=== PATIENT | male | born 1935 | race Caucasian/White ===

== ENCOUNTER 2017-05-04 06:06 | Observation (INO) | payer MEDICARE ==
[~2017-05-04] VITALS: Ht 180.3 cm; Wt 80.3 kg
[~2017-05-04 06:06] MED LIST: ALLO300T2 PO; ASPI81TA11 PO; HYDR25TA5 PO; LISI-515 PO; LOVA40TA PO; METF500T PO; TAMS0.4C4 PO
[2017-05-04] MEDS ORDERED: CHLORHEXIDINE GLUCONATE 2 % 1 PACK (2 CLOTHS) TOPICAL PRN (06:30)
[2017-05-04] MEDS ORDERED: SODIUM CHLOR 0.9% 1000 ML INJ 1,000 ML IV SCH (06:30)
[2017-05-04] MEDS ORDERED: INSULIN HUMAN REGULAR 1,000 UNITS/10 ML VIAL SQ PRN (06:30)
[2017-05-04] MEDS ORDERED: METOPROLOL TARTRATE 25 MG TAB PO PRN (06:30)
[2017-05-04] MEDS ORDERED: SODIUM CHLORID 0.9% 500 ML IV PRN (06:30)
[2017-05-04] MEDS ORDERED: POVIDONE IODINE 5% (ANTISEPSIS KIT) 4 APPLICATIONS EACH NARE PRN (06:30)
[2017-05-04] MEDS ORDERED: VANCOMYCIN 1,000 MG/NS 250ML (for <70 kg) IV SCH ×2 (06:30)
[2017-05-04] MEDS ORDERED: LACTATED RINGER'S 1000 ML IV PRN (06:30)
[2017-05-04 07:14] VITALS: BP 172/75; PULSE 70; RESP 16; TEMP 97.8; O2SAT 98
[2017-05-04] MEDS ORDERED: GENTAMICIN SULFATE 80 MG/2 ML VIAL ONE (07:26)
[2017-05-04] MEDS ORDERED: GELFOAM SIZE 100 ONE (07:26)
[2017-05-04] MEDS ORDERED: ceFAZolin 2 GM PREMIX 50 ML ONE (07:26)
[2017-05-04] MEDS ORDERED: methylPREDNISolone ACETATE 40 MG/ML VIAL ONE (07:26)
[2017-05-04] MEDS ORDERED: THROMBIN (TOPICAL) 5,000 UNIT VIAL ONE (07:26)
[2017-05-04] MEDS ORDERED: ACETAMINOPHEN 1000 MG/100 ML VIAL IV ONE (07:54)
[2017-05-04] MEDS ORDERED: ARTIFICIAL TEARS OPTH OINT 3.5 APPLIC/3.5 GM TUBO ONE (07:54)
[2017-05-04] MEDS ORDERED: MIDAZOLAM HCL 2 MG/2 ML VIAL ONE (07:54)
[2017-05-04] MEDS ORDERED: fentaNYL CITRATE 250 MCG/5 ML AMP ONE (07:55)
[2017-05-04] MEDS ORDERED: FAMOTIDINE 20 MG/2 ML VIAL ONE ×2 (07:56→07:57)
[2017-05-04] MEDS ORDERED: BUPIVACAINE/EPINEPHRINE 0.5% PF 30 ML VIAL ONE (09:43)
[2017-05-04] MEDS ORDERED: DO NOT ADM ANY ANTICOAGULANT DRUGS PRN (10:15)
[2017-05-04] MEDS ORDERED: MENTHOL LOZENGE BUCCAL PRN (10:45)
[2017-05-04] MEDS ORDERED: RESP: ALBUTEROL 2.5 MG/3 ML NEB (PRN) INH (10:45)
[2017-05-04] MEDS ORDERED: MORPHINE SULFATE 4 MG/ML INJ IV PUSH PRN ×2 (10:45)
[2017-05-04] MEDS: SODIUM CHLORIDE 0.9% FLUSH 5 ML FLUSH IVF SCH ×2 (10:45→20:24)
[2017-05-04] MEDS ORDERED: ACETAMINOPHEN/HYDROcodone 325 MG/10 MG TAB PO PRN ×2 (10:45)
[2017-05-04] MEDS ORDERED: ACETAMINOPHEN 325 MG TAB PO PRN (10:45)
[2017-05-04] MEDS ORDERED: SODIUM CHLORIDE 0.9% FLUSH 5 ML FLUSH IVF PRN (10:45)
[2017-05-04] MEDS ORDERED: cloNIDine HCL 0.1 MG TAB PO/NG PRN (10:45)
[2017-05-04] MEDS ORDERED: HYDR-3583 PO (10:58)
[2017-05-04] MEDS: NS + KCL 20 MEQ INJ 1,000 ML IV SCH ×3 (11:00→16:42)
--- NOTE | 2017-05-04 11:11 | PD.OP ---
Operative Report Date of Surgery: May 04, 2017 Preoperative Diagnosis: Lumbar spinal stenosis Postoperative Diagnosis: Lumbar spinal stenosis Procedure: Right L4-5 laminectomy, mesiofacetectomy, foraminotomy, microsurgical resection of the disk Anesthesia: general Surgeon: Bright Alcantara Reeling Machine Setup Operator(s): Natalie Spears Operation and Findings: INDICATIONS FOR THE SURGICAL PROCEDURE Mr Shen is a 81 year-old male who presented with intractable back pain and emmy evidence of right L5 lower extremity radiculopathy. He has failed maximum nonsurgical management including multiple modalities of conservative treatment as well as pain management interventions by an interventional pain specialist. A surgical decompression was indicated as a last resort. The [id number] details of the procedure, indications, alternatives, risks and potential complications were fully discussed with the patient. The patient fully understood. All the questions were answered. No guarantees were given. The patient voiced requesting the procedure and provided informed consents. The patient was offered the alternative of delaying the procedure and continuing with nonsurgical management. DETAILS OF THE SURGICAL PROCEDURE After the induction of general anesthesia, endotracheal intubation was performed. A Sanchez catheter, bilateral SEPIDEH hose and sequential compression devices were placed and kept throughout the procedure. The patient was positioned prone on a Rodger table over a Torsten frame. All pressure points were carefully padded with eggcrate mattress. The eyes were tapped shut after ointment was applied by the anesthesiologist to prevent corneal abrasion. A Jada hugger was placed over the expossed lower body to maintain control of the core body temperature. The lower lumbar region was prepped and draped in the usual sterile fashion. A spinal needle was placed on the paraspinal muscle and a cross-table lateral x-ray performed with a C-arm. The skin incision was made over the spinous process of L4 and L5 along the midline. Small subcutaneous bleeders were controlled with a bipolar. The subcutaneous tissue and thoracolumbar fascia was opened with the Bovie and the spinous process of L4 and L5 were exposed. Then, using a Cho elevator and a Bovie a subperiosteal dissection was performed over the right spinous process lamina and facet at L4 and L5 on the right side. A microdiscectomy self- retaining retractor was placed and an instrument was placed underneath the lamina of L4, and another cross-table lateral x-ray performed for radiological confirmation of the level. At this point in the procedure the operating microscope was draped in the usual sterile fashion and brought to the field. The rest of the surgical procedure was performed using microsurgical dissection technique with exception of the closure. Once the level was confirmed, a TPS drill brought to the field and a hemilaminectomy was performed at L4-L5 on the right side in standard fashion using the AM-8 drill bit, exposing the ligamentum flavum. The superior free border of the ligamentum flavum was from the dura with a ligament dissector and the ligamentum flavum was carefully removed with a 3 mm thin footplate Kerrison. The ligament Flavum and facets were significantly hypertrophic resulting on mass effect on the dural sac. Then, the medial aspect of the facet was drilled and undermined and the exiting L5 nerve root was identified and followed towards the foramen. A foraminotomy was performed with a 3 mm Kerrison. Then, the TPS drill was used to undermine the base of the spinous process, in order to carry out the decompression across the midline to the contralateral side. The ligamentum flavum across the midline was dissected from the dura with a ligament dissector and carefully removed with a 3 mm thin footplate Kerrison. An appropriate decompression of the dural sac and nerve root was achieved. Epidural veins located laterally to the dural sac were carefully coagulated with a bipolar and incised with microscissors. Gentle medial retraction of the dural sac allowed inspection of the disc space. The patient had a broad-based disc protusion which combined with the hypertrophic facets and ligamentun flavum was producing significant stenosis with mass effect on the dural sac and nerve root. Microdiscectomy was then deemed necessary. The annulus fibrosus was thoroughly coagulated with the bipolar and incised with a #10 blade. Then, a microdiscectomy was carried out in the standard fashion using straight and up-biting pituitary forceps. A reverse angle curet was used to push the extruded disc fragments into the disc space so they could be removed with pituitary forceps. Special attention was placed on the middle nerve root and axilla of the nerve root where disc fragments were found, which were carefully dissected and pushed into the disc space and removed with the Kerrison. A good decompression was achieved. The disc space was then irrigated with antibiotic solution. The incision was then thoroughly irrigated with antibiotic solution and hemostasis secured with the bipolar. A Valsalva maneuver failed to show any cerebrospinal fluid leak or bleeding. The incision was irrigated and closed in layers. 0 Vicryl with interrupted sutures was used to close the thoracolumbar fascia and superficial fascia. The subcutaneous tissue was closed with 3-0 Vicryl. The skin was closed with 4-0 running subcuticular Vicryl. Dermabond was applied to the skin. At the end of the procedure, the sponge, needle and instrument counts were all correct. Estimated blood loss was less than 60 cc. No blood transfusion was given. No intraoperative complications occurred. The patient received prophylactic antibiotics. The patient was then extubated and transferred to the recovery room in stable condition. Bright Alcantara MD May 04, 2017 11:11
[2017-05-04] MEDS ORDERED: NEOSTIGMINE 3 MG/3 ML SYR IV ONE (12:00)
[2017-05-04] MEDS ORDERED: LACTATED RINGER'S 1000 ML INJ 1,000 ML IV ONE (12:00)
[2017-05-04] MEDS ORDERED: ONDANSETRON HCL 4 MG/2 ML VIAL IV PUSH ONE (12:00)
[2017-05-04] MEDS ORDERED: PROPOFOL 200 MG/20 ML AMP IV ONE (12:00)
[2017-05-04] MEDS ORDERED: PHENYLEPH/NS 1000 MCG/10 ML SYR IV ONE (12:00)
[2017-05-04] MEDS ORDERED: ePHEDrine/NS 25 MG/5 ML SYR IV ONE (12:00)
--- NOTE | 2017-05-04 12:20 | RADRPT ---
EXAM DATE/TIME: 05/04/2017 08:41 [facility] COMPARISON: No previous studies available for comparison. INDICATIONS : Laminectomy, diskectomy herniated disk, level loc. MEDICAL HISTORY : None. SURGICAL HISTORY : None. ENCOUNTER: Initial ACUITY: 1 day PAIN SCORE: 0/10 LOCATION: Lumbar spine FINDINGS: Surgical instruments are noted posteriorly at L4-5. CONCLUSION: Surgical instruments noted posteriorly at L4-5. Kenneth Villagomez MD on May 04, 2017 at 12:09 Board Certified Radiologist. This report was verified electronically.
--- NOTE | 2017-05-04 12:54 | HHI.DCPOC ---
Discharge Care Plan Diagnosis: (1) S/P lumbar laminectomy Goals to Promote Your Health * To prevent worsening of your condition and complications * To maintain your health at the optimal level Directions to Meet Your Goals Take your medications as prescribed Follow your dietary instruction Follow activity as directed Keep your appointments as scheduled Take your immunizations and boosters as scheduled If your symptoms worsen call your PCP, if no PCP go to Urgent Care Center or Emergency Room Smoking is Dangerous to Your Health. Avoid second hand smoke Call the 24-hour hour crisis hotline for domestic abuse at [facility] May 04, 2017 12:54
--- NOTE | 2017-05-04 12:54 | HHI.DS ---
Discharge Summary Admission Date May 04, 2017 at 10:47 Discharge Date: May 05, 2017 Admitting Diagnosis s/p lumbar laminectomy (1) S/P lumbar laminectomy ICD Code: Z98.890 Brief History Mr. Shen is a 81 year-old male who presented with intractable back pain and emmy evidence of right L5 lower extremity radiculopathy. He has failed maximum nonsurgical management including multiple modalities of conservative treatment as well as pain management interventions by an interventional pain specialist. A surgical decompression was indicated as a last resort. Imaging Last Impressions Lumbar Spine X-Ray 05/04/17 0000 Signed Impressions: Service Date/Time: Thursday, May 04, 2017 08:41 - CONCLUSION: Surgical instruments noted posteriorly at L4-5. Kenneth Villagomez MD Hospital Course Mr. Shen underwent a right L4-5 laminectomy, mesiofacetectomy, foraminotomy, microsurgical resection of the disk on May 04, 2017. His surgery went well without complications. The patient however developed post-surgical urgency. He has been able to void several times since catheter discontinued. He was stable for discharge home. He will follow up with his primary care physician in regards to the bladder issues. He will continue Pyridium and Flomax pending his follow-up medical appointment. Signs and symptoms to watch for fully discussed and all questions answered. He requested discharge home. He does not want a Sanchez catheter. Pt Condition on Discharge: Stable Discharge Disposition: Discharge Home Discharge Instructions DIET: Follow Instructions for: Heart Healthy Diet, Diabetic Diet ACTIVITIES You can perform: Weight Bearing As [place] ADDITIONAL Activity Instructio: Avoid strenuous activities, heavy lifting, overhead activities, repetitive bending, twisting, pushing, pulling or any activities which might result in stress over the spine. Avoid situtation that will put at risk for falls. Use assistive device as needed for walking. Wear lumbar brace when out of bed. New Medications: Hydrocodone-Acetaminophen (Hydrocodone-Acetaminophen) 10-325 mg Tab 1 TAB PO Q8HR PRN PAIN SCALE 1 TO 10 #90 Ref 0 TAB Phenazopyridine HCl (Phenazopyridine HCl) 100 Mg Tab 100 MG PO Q8HR Manage Prostate Problems #30 Ref 0 TAB Continued Medications: Allopurinol (Allopurinol) 300 Mg Tab 150 MG PO DAILY Gout #30 Ref [address] (Aspirin EC) 81 Mg Tabdr 81 MG PO DAILY Ref 0 TAB Hydrochlorothiazide (Hydrochlorothiazide) 25 Mg Tab 12.5 MG PO HS #30 Ref 0 TAB Lisinopril (Lisinopril) 20 Mg Tab 20 MG PO DAILY #30 Ref 0 TAB Lovastatin (Lovastatin) 40 Mg Tab 40 MG PO HS Cholesterol Management #30 Ref 0 TAB Metformin (Metformin) 500 Mg Tab 1000 MG PO AM With meals Blood Sugar Management #60 Ref 0 TAB Metformin (Metformin) 500 Mg Tab 500 MG PO HS With a meal Blood Sugar Management #30 Ref 0 TAB Tamsulosin (Tamsulosin) 0.4 Mg Cap 0.4 MG PO DAILY Manage Prostate Problems #30 Ref 0 CAP [facility] May 04, 2017 12:54
[2017-05-04] MEDS ORDERED: DEXTROSE 50% IN WATER 50 ML VIAL(D50) IV PRN (13:00)
[2017-05-04] MEDS ORDERED: GLUCAGON 1 MG/ML VIAL OTHER PRN (13:00)
[2017-05-04] MEDS ORDERED: PILL SPLITTER OTHER PRN (13:15)
[2017-05-04 13:30] VITALS: BP 133/68; PULSE 76; RESP 18; TEMP 96.5; O2SAT 95
[2017-05-04 16:00] VITALS: BP 154/70; PULSE 70; RESP 18; TEMP 98.4; O2SAT 96
[2017-05-04] MEDS: INSULIN ASPART SUPPLEMENTAL SCALE SQ SCH ×2 (16:00→20:24)
[2017-05-04] MEDS: ceFAZolin 2 GM PREMIX 50 ML IV SCH (16:36)
[2017-05-04 17:32] VITALS: O2SAT 95
[2017-05-04 20:15] VITALS: BP 167/66; PULSE 78; RESP 17; TEMP 96.1; O2SAT 95
[2017-05-04] MEDS: DOCUSATE SODIUM 100 MG CAP PO SCH (20:24)
[2017-05-04] MEDS: PRAVASTATIN SOD 40 MG TAB PO SCH (20:24)
[2017-05-04] MEDS: metFORMIN HCL 500 MG TAB PO SCH (20:24)
[2017-05-04] MEDS: HYDROCHLOROTHIAZIDE 12.5 MG CAP PO SCH (20:24)
[2017-05-04 23:20] VITALS: BP 108/57; PULSE 63; RESP 17; TEMP 97.4; O2SAT 95
[2017-05-05] MEDS: ceFAZolin 2 GM PREMIX 50 ML IV SCH ×2 (01:27→09:23)
[2017-05-05 04:05] VITALS: BP 141/66; PULSE 69; RESP 17; TEMP 97.1; O2SAT 98
[2017-05-05] MEDS: INSULIN ASPART SUPPLEMENTAL SCALE SQ SCH ×4 (06:01→21:00)
[2017-05-05 08:00] VITALS: BP 121/58; PULSE 70; RESP 18; TEMP 95.7; O2SAT 95
[2017-05-05] MEDS: SODIUM CHLORIDE 0.9% FLUSH 5 ML FLUSH IVF SCH ×2 (09:00→21:00)
[2017-05-05] MEDS: LISINOPRIL 20 MG TAB PO SCH (09:21)
[2017-05-05] MEDS: TAMSULOSIN HCL 0.4 MG CAP PO SCH (09:21)
[2017-05-05] MEDS: ALLOPURINOL 300 MG TAB PO SCH (09:22)
[2017-05-05] MEDS: DOCUSATE SODIUM 100 MG CAP PO SCH ×2 (09:22→21:03)
[2017-05-05] MEDS: PANTOPRAZOLE SOD 40 MG DELAYED RELEASE TAB PO SCH (09:22)
[2017-05-05 12:00] VITALS: BP 132/69; PULSE 73; RESP 18; TEMP 97.2; O2SAT 97
--- NOTE | 2017-05-05 14:25 | HHI.NSPN ---
History Chief Complaint: burning with urination Interval History 81 male status post lumbar laminectomy 05/04/17. Difficulty voiding last night requiring intermittent catheterization with postvoid bladder scan reported the 700 cc. Now with Sanchez catheter in place. No complaint of fevers, chills, pain and numbness in the extremities. No significant low back pain System Review Comments Ambulating without difficulty. No pain with numbness in the upper extremities Pain control adequate with present medications Exam Results Vital Signs Date Time Temp Pulse Resp B/P Pulse Ox O2 Delivery O2 Flow Rate FiO2 05/05/17 12:00 97.2 73 18 132/69 97 05/04/17 17:32 21 05/04/17 12:30 Room Air 05/04/17 10:45 2 Intake and Output 05/04/17 05/04/17 05/05/17 08:00 16:00 00:00 Intake Total 1300 ml 480 ml Output Total 30 ml 1300 ml Balance 1270 ml -820 ml Physical Examination Sitting up in chair Family in room Respirations clear and regular Awake and alert speech clear and appropriate Sensation intact by touch all extremities Strength normal major flexion and extension groups all extremities No ankle clonus No extremity edema Sanchez catheter in place. Clear yellow urine Medical Decision Making Impression and Plan Impression: 1. Stable neurologic exam postoperative. No residual lumbar radiculopathy or claudication symptoms 2. Dysuria. Probable bladder spasm. Urinary retention postoperative. History of BPH, on Flomax Plan: Findings were discussed with the patient and his family. Option of discharge with Sanchez versus trial of Pyridium and follow-up bladder scan post void discussed. He will remain in the hospital at this point. Continue Sanchez catheter Urinalysis Continue Flomax Initiate Pyridium Yoni Mckeon MD May 05, 2017 14:25
[2017-05-05] MEDS: PHENAZOPYRIDINE HCL 100 MG TAB PO SCH ×2 (15:32→21:02)
[2017-05-05 15:40] VITALS: BP 110/50; PULSE 82; RESP 18; TEMP 98.2; O2SAT 97
[2017-05-05 17:51] LABS: BLOOD, URINE SMALL (NEG); GLUCOSE,URINE NEG (NEG); KETONE, URINE NEG (NEG); MUCUS URINE FEW /lpf (OCC); NITRITE,URINE NEG (NEG); URINE COLOR DARK-YELLOW (YELLW/STRAW)
[2017-05-05 17:53] LABS: COMMENT (UR) CATH-CULT NOT IND; CULTURE IF INDICATED CATH CULTURE NOT IND
[2017-05-05 20:00] VITALS: BP 129/59; PULSE 79; RESP 18; TEMP 98; O2SAT 95
[2017-05-05] MEDS: metFORMIN HCL 500 MG TAB PO SCH (21:02)
[2017-05-05] MEDS: PRAVASTATIN SOD 40 MG TAB PO SCH (21:02)
[2017-05-05] MEDS: HYDROCHLOROTHIAZIDE 12.5 MG CAP PO SCH (21:03)
[2017-05-05] MEDS: NS + KCL 20 MEQ INJ 1,000 ML IV SCH (21:03)
[2017-05-06] VITALS: BP 119/56; PULSE 74; RESP 16; TEMP 97.7; O2SAT 94
[2017-05-06 04:00] VITALS: BP 126/65; PULSE 74; RESP 16; TEMP 97.7; O2SAT 95
[2017-05-06] MEDS: INSULIN ASPART SUPPLEMENTAL SCALE SQ SCH ×2 (06:06→11:00)
[2017-05-06] MEDS: PHENAZOPYRIDINE HCL 100 MG TAB PO SCH ×2 (06:06→14:50)
[2017-05-06 08:00] VITALS: BP 132/63; PULSE 104; RESP 18; TEMP 98.9; O2SAT 93
[2017-05-06] MEDS: SODIUM CHLORIDE 0.9% FLUSH 5 ML FLUSH IVF SCH (09:00)
[2017-05-06] MEDS: TAMSULOSIN HCL 0.4 MG CAP PO SCH (09:22)
[2017-05-06] MEDS: ALLOPURINOL 300 MG TAB PO SCH (09:22)
[2017-05-06] MEDS: DOCUSATE SODIUM 100 MG CAP PO SCH (09:23)
[2017-05-06] MEDS: PANTOPRAZOLE SOD 40 MG DELAYED RELEASE TAB PO SCH (09:23)
[2017-05-06] MEDS: LISINOPRIL 20 MG TAB PO SCH (09:23)
[2017-05-06 12:00] VITALS: BP 169/87; PULSE 98; RESP 18; TEMP 96.9; O2SAT 96
--- NOTE | 2017-05-06 12:50 | HHI.NSPN ---
([facility]) History Chief Complaint: No complaints ([facility] [place]) Interval History 05/04: Right L4-5 laminectomy, mesiofacetectomy, foraminotomy, microsurgical resection of the disk 05/05: 81 male status post lumbar laminectomy 05/04/17. Difficulty voiding last night requiring intermittent catheterization with postvoid bladder scan reported the 700 cc. Now with Sanchez catheter in place. No complaint of fevers, chills, pain and numbness in the extremities. No significant low back pain 05/06: Patient is awake & alert, talking with family. He states he feels where the surgery was but has no pain. He does state he has voided 3 times. Spoke with his RN and she was unaware of it. The Sanchez catheter was removed about 9: 30 this morning, therefore no postvoid bladder scan done for residual. ([facility]) System Review Comments CONSTITUTIONAL: Patient denies any fever or chills. RESPIRATORY: Patient denies any shortness of breath or productive cough. CARDIOVASCULAR: Patient denies any chest pain, palpitations or irregular heartbeat. GASTROINTESTINAL: Patient denies any abdominal pain, nausea or vomiting. GENITOURINARY: Patient states that he has voided 3 times since the Sanchez came out. MUSCULOSKELETAL: Patient states that he feels it where the surgical incision is but that it isn't painful. He denies any arm or leg pain or weakness. NEUROLOGICAL: Patient denies any headache, dizziness, numbness or tingling. ( [facility]) Exam Results Vital Signs Date Time Temp Pulse Resp B/P Pulse Ox O2 Delivery O2 Flow Rate FiO2 05/06/17 08:00 98.9 104 18 132/63 93 05/04/17 17:32 21 05/04/17 12:30 Room Air 05/04/17 10:45 2 Intake and Output 05/05/17 05/05/17 05/06/17 08:00 16:00 00:00 Intake Total 813 ml 720 ml 480 ml Output Total 400 ml 1100 ml 1800 ml Balance 413 ml -380 ml -1320 ml ([facility]) Physical Examination GENERAL: Awake & alert, readily interacts, normal affect, no apparent distress. RESPIRATORY: CTAB w/o W/R/R, equal excursion, nonlaboured, on RA. CARDIOVASCULAR: S1S2 w/RRR w/o M/G/R. GASTROINTESTINAL: Abdomen soft, nontender, positive bowel sounds. MUSCULOSKELETAL: LSO brace in place. Thoracolumbar spine NTTP. NEUROLOGICAL: AAOx3 Speech clear & appropriate Follows simple commands Sensation intact to light touch to BLE Motor strength 5/5 to all major flexion & extension groups to BLE ([facility] [place]) Medical Decision Making Impression and Plan Impression: 1. Stable neurologic exam postoperative. No residual lumbar radiculopathy or claudication symptoms 2. Dysuria. Probable bladder spasm. Urinary retention postoperative. History of BPH, on Flomax Sanchez catheter removed this morning and patient states he has voided 3 times, no postvoid residual done UA unremarkable for UTI Plan: Discussed plan of care with the patient and his family. Discussed plan of care with Nursing Continue Flomax Continue Pyridium Postvoid bladder scan to check residual Patient may be able to be discharged home today if minimal postvoid residual ( [facility]) Attending Statement I have personally seen and examined the patient on the date of this note. Pertinent documentation and study results have been reviewed by the undersigned. I have personally developed the treatment plan and performed medical decision making. Agree with findings, exam, and treatment plan as noted above. Initial discussion with nursing staff yesterday indicated that the patient's urinary frequency and urgency was new problem. Discussion with the patient and his family further today indicate that this may be a long standing problem. He has been able to void several times since catheter discontinued earlier today , voiding over 100 cc each time. Patient is felt stable for discharge home today. He will follow up with his primary care physician tomorrow in regards to the bladder issues. In the meantime he will continue Pyridium and increase Flomax 2 twice a day pending his follow-up medical appointment. Signs and symptoms to watch for fully discussed and all questions answered. He would like to discharge home today. He does not want a Sanchez catheter. (Yoni Mckeon MD) [facility] May 06, 2017 12:50 Yoni Mckeon MD May 06, 2017 20:21
[2017-05-06] MEDS ORDERED: PHEN-427 PO (15:36)
== END 2017-05-06 16:22 | disposition home or self-care (01) ==
LOC: HSDC 06:06 → HSDI 10:47 → N06A 12:49
PROVIDERS: ADMIT Neurological Surgery; ATTEND Neurological Surgery
DX: M48.06 Spinal stenosis, lumbar region (principal); M54.9 Dorsalgia, unspecified; N40.0 Benign prostatic hyperplasia without lower urinary tract symptoms; N99.89 Other postprocedural complications and disorders of genitourinary system; R33.8 Other retention of urine; E11.9 Type 2 diabetes mellitus without complications; J44.9 Chronic obstructive pulmonary disease, unspecified; E78.5 Hyperlipidemia, unspecified; M10.9 Gout, unspecified
CPT/HCPCS: 00630; 63047; 72020; 76000; 81001; 82948; 97110; 97116; 97162; G0378; G8987; G8988; J0131; J0690; J1030; J1580; J2250; J2370; J2405; J2710; J3010; J3370; J3480; J7050; J7120; L0627